=== PATIENT | female | born 1970 | race Caucasian/White ===

== ENCOUNTER 2017-04-21 19:20 | Emergency (ER) | payer BC, OTHER ==
[2017-04-21 19:28] VITALS: BP 179/82; PULSE 81; RESP 20; TEMP 99.2; O2SAT 96
[2017-04-21] MEDS ORDERED: WELL200T PO (19:32)
[2017-04-21] MEDS ORDERED: TIRO125C PO (19:32)
[2017-04-21] MEDS ORDERED: SODIUM CHLOR 0.9% 1000 ML INJ 1,000 ML IV SCH (19:58)
[2017-04-21 19:59] VITALS: O2SAT 98
[2017-04-21] MEDS ORDERED: SODIUM CHLORIDE 0.9% FLUSH 10 ML FLUSH IV FLUSH PRN (20:00)
[2017-04-21 20:12] LABS: AUTOMATED NEUTROPHIL # 14.6 TH/MM3 (1.8-7.7); BASOPHIL # 0.1 TH/MM3 (0-0.2); BASOPHIL % 0.6 % (0.0-2.0); EOSINOPHIL # 0.1 TH/MM3 (0-0.4); EOSINOPHIL % 0.7 % (0.0-4.0); HEMATOCRIT 41.7 % (35.0-46.0); LYMPH % 6.8 % (9.0-44.0); LYMPHOCYTE # 1.1 TH/MM3 (1.0-4.8); MEAN CELL VOLUME 87.4 FL (80.0-100.0); MEAN CORPUSCULAR HEMOGLOBIN 29.9 PG (27.0-34.0); MEAN CORPUSCULAR HGB CONC 34.2 % (32.0-36.0); MONO % 6.2 % (0.0-8.0); NEUT % 85.7 % (16.0-70.0); PLATELET COUNT 187 TH/MM3 (150-450); RED BLOOD COUNT 4.77 MIL/MM3 (4.00-5.30); RED CELL DISTRIBUTION WIDTH 16.2 % (11.6-17.2); WHITE BLOOD COUNT 16.9 TH/MM3 (4.0-11.0)
[2017-04-21 20:13] LABS: BLOOD, URINE TRACE (NEG); GLUCOSE,URINE NEG (NEG); KETONE, URINE NEG (NEG); NITRITE,URINE NEG (NEG); PH, URINE 5.5 (5.0-8.5)
[2017-04-21 20:14] LABS: HEMO FLAGS DIFF FINAL
[2017-04-21 20:19] LABS: CHLORIDE 103 MEQ/L (98-107); POTASSIUM 3.6 MEQ/L (3.5-5.1); SODIUM (NA) 136 MEQ/L (136-145)
[2017-04-21 20:23] LABS: ANION GAP 8 MEQ/L (5-15); BICARBONATE 24.9 MEQ/L (21.0-32.0)
[2017-04-21 20:24] LABS: URINE COLOR YELLOW (YELLW/STRAW)
[2017-04-21 20:24] LABS: BLOOD UREA NITROGEN 11 MG/DL (7-18); PROTHROMBIN TIME - PATIENT 11.2 SEC (9.8-11.6)
[2017-04-21 20:25] LABS: MUCUS URINE MOD /lpf (OCC)
[2017-04-21 20:26] LABS: ALT (GPT) 21 U/L (10-53); AST (GOT) 12 U/L (15-37); GLOMERULAR FILTRATION RATE 75 ML/MIN (>89)
[2017-04-21 20:27] LABS: BACTERIA, URINE OCC /hpf
[2017-04-21 20:28] LABS: TOTAL BILIRUBIN ADULT 0.3 MG/DL (0.2-1.0)
[2017-04-21 20:29] LABS: ALKALINE PHOSPHATASE 61 U/L (45-117)
[2017-04-21 20:31] LABS: COMMENT (UR) CULT NOT INDICATED; CULTURE IF INDICATED CULT NOT INDICATED; WBC, URINE 0-2 /hpf (0-5)
[2017-04-21 20:32] LABS: BETA HCG QUANT LESS THAN 1 MIU/ML (0-5)
--- NOTE | 2017-04-21 20:32 | RADRPT ---
EXAM DATE/TIME: 04/21/2017 20:13 [place] COMPARISON: No previous studies available for comparison. INDICATIONS : Right upper quadrant pain. MEDICAL HISTORY : Thyroid disease. SURGICAL HISTORY : Uterine oblation. ENCOUNTER: Initial ACUITY: 1 day PAIN SCORE: 0/10 LOCATION: Right upper quadrant MEASUREMENTS: LIVER: 19.2 cm length COMMON DUCT: 6 mm RIGHT KIDNEY: 13.5 x 5.3 x 6.0 cm FINDINGS: LIVER: Liver is enlarged and demonstrates a heterogeneous echotexture. COMMON DUCT: No intraluminal mass or stone visualized. GALLBLADDER: The gallbladder is collapsed and contains multiple stones. There is no evidence of surrounding fluid. PANCREAS: The visualized portions are within normal limits. RIGHT KIDNEY: No evidence of hydronephrosis, stone, or mass. CONCLUSION: 1. Collapsed gallbladder with multiple stones but no evidence of surrounding fluid. 2. Hepatomegaly with coarse echotexture. 3. No other significant abnormality. Jony Carty MD on April 21, 2017 at 20:28 Board Certified Radiologist. This report was verified electronically.
[2017-04-21] MEDS ORDERED: ZOFR4TAB3 SL (20:47)
--- NOTE | 2017-04-21 20:47 | PD ---
HPI Chief Complaint: Abdominal Pain Time Seen by Provider: 19:42 Travel History International Travel<30 days: No Contact w/Intl Traveler<30days: No Traveled to known affect area: No History of Present Illness HPI 46-year-old female with history of gallstones scheduled for cholecystectomy in [address] Velazco, history of anemia with heavy vaginal bleeding and is scheduled for hysterectomy at the same time as her cholecystectomy in 2 weeks, here for evaluation of nausea, vomiting, and right upper quadrant abdominal pain. Symptoms started suddenly shortly after eating this evening. Right upper quadrant pain was pressure-like and sharp. She vomited several times, initially she saw coffee grounds, however this turned into food. No hematemesis. No melena or hematochezia. She was given Zofran by EMS, and upon arrival the patient reports feeling significantly improved. She no longer has abdominal pain. PFSH Past Medical History Thyroid Disease: Yes ?: Not Past Surgical History Other Surgery: Yes (UTERINE OBLATION) Social History Alcohol Use: No Tobacco Use: No Substance Use: No Allergies-Medications (Allergen,Severity, Reaction): Coded Allergies: penicillin G (Unverified Adverse Reaction, Unknown, U, 04/21/17) Reported Meds & Prescriptions Reported Meds & Active Scripts Active Reported Tirosint (Levothyroxine Sodium) 125 Mcg Cap 125 Mcg PO DAILY Wellbutrin SR 12 HR (Bupropion HCl) 200 Mg Tab 200 Mg PO DAILY Review of Systems Except as stated in HPI: all other systems reviewed are Neg Physical Exam Narrative GENERAL: Well-developed, well-nourished, comfortable, no apparent distress. SKIN: Focused skin assessment warm/dry. HEAD: Atraumatic. Normocephalic. EYES: Pupils equal and round. No scleral icterus. No injection or drainage. ENT: Mucous membranes pink and moist. NECK: Trachea midline. No JVD. CARDIOVASCULAR: Regular rate and rhythm. No murmur appreciated. RESPIRATORY: No accessory muscle use. Clear to auscultation. Breath sounds equal bilaterally. GASTROINTESTINAL: Abdomen soft, non-tender, nondistended. Heme negative brown stool. MUSCULOSKELETAL: No obvious deformities. No clubbing. No cyanosis. No edema. NEUROLOGICAL: Awake and alert. No obvious cranial nerve deficits. Motor grossly within normal limits. Normal speech. PSYCHIATRIC: Appropriate mood and affect; insight and judgment normal. Data Data Last Documented VS Vital Signs Date Time Temp Pulse Resp B/P (MAP) Pulse Ox O2 Delivery O2 Flow Rate FiO2 04/21/17 19:59 98 04/21/17 19:28 99.2 81 20 179/82 (114) Orders Orders Beta Hcg (Quant/Titer) (04/21/17 19:58) Complete Blood Count With Diff (04/21/17 19:58) Comprehensive Metabolic Panel (04/21/17 19:58) Lipase (04/21/17 19:58) Prothrombin Time / Inr (Pt) (04/21/17 19:58) Act Partial Throm Time (Ptt) (04/21/17 19:58) Urinalysis - C+S If Indicated (04/21/17 19:58) Us Abdomen Gallbladder (04/21/17 ) Iv Access Insert/Monitor (04/21/17 19:58) Ecg Monitoring (04/21/17 19:58) Oximetry (04/21/17 19:58) Sodium Chlor 0.9% 1000 Ml Inj (Ns 1000 M (04/21/17 19:58) Sodium Chloride 0.9% Flush (Ns Flush) (04/21/17 20:00) Labs Laboratory Tests Test 04/21/17 19:55 04/21/17 20:05 Urine Collection Type Urine Color YELLOW Urine Turbidity SLIGHT Urine pH 5.5 Urine Specific [place] 1.022 Urine Protein NEG mg/dL Urine Glucose (UA) NEG mg/dL Urine Ketones NEG mg/dL Urine Occult Blood TRACE Urine Nitrite NEG Urine Bilirubin NEG Urine Leukocyte Esterase NEG Urine RBC 4-9 /hpf Urine WBC 0-2 /hpf Urine Squamous Epithelial Cells 6-8 /hpf Urine Amorphous Sediment FEW Urine Bacteria OCC /hpf Urine Mucus MOD /lpf Microscopic Urinalysis Comment CULT NOT INDICATED White Blood Count 16.9 TH/MM3 Red Blood Count 4.77 MIL/MM3 Hemoglobin 14.3 GM/DL Hematocrit 41.7 % Mean Corpuscular Volume 87.4 FL Mean Corpuscular Hemoglobin 29.9 PG Mean Corpuscular Hemoglobin Concent 34.2 % Red Cell Distribution Width 16.2 % Platelet Count 187 TH/MM3 Mean Platelet Volume 9.2 FL Neutrophils (%) (Auto) 85.7 % Lymphocytes (%) (Auto) 6.8 % Monocytes (%) (Auto) 6.2 % Eosinophils (%) (Auto) 0.7 % Basophils (%) (Auto) 0.6 % Neutrophils # (Auto) 14.6 TH/MM3 Lymphocytes # (Auto) 1.1 TH/MM3 Monocytes # (Auto) 1.0 TH/MM3 Eosinophils # (Auto) 0.1 TH/MM3 Basophils # (Auto) 0.1 TH/MM3 CBC Comment DIFF FINAL Differential Comment Prothrombin Time 11.2 SEC Prothromb Time International Ratio 1.0 RATIO Activated Partial Thromboplast Time 24.0 SEC Blood Urea Nitrogen 11 MG/DL Creatinine 0.81 MG/DL Random Glucose 139 MG/DL Total Protein 7.1 GM/DL Albumin 3.5 GM/DL Calcium Level 8.2 MG/DL Alkaline Phosphatase 61 U/L Aspartate Amino Transf (AST/SGOT) 12 U/L Alanine Aminotransferase (ALT/SGPT) 21 U/L Total Bilirubin 0.3 MG/DL Sodium Level 136 MEQ/L Potassium Level 3.6 MEQ/L Chloride Level 103 MEQ/L Carbon Dioxide Level 24.9 MEQ/L Anion Gap 8 MEQ/L Estimat Glomerular Filtration Rate 75 ML/MIN Lipase 118 U/L Human Chorionic Gonadotropin, Quant LESS THAN 1 MIU/ML MDM Medical Decision Making Medical Screen Exam Complete: Yes Emergency Medical Condition: Yes Differential Diagnosis Biliary colic, gastritis, peptic ulcer disease, pancreatitis, cholecystitis, choledocholithiasis, cholangitis Narrative Course Initial vital signs show heart rate 81, blood pressure 179/82, pulse ox 96% on room air, oral temp of 99.2F. CBC is remarkable for WBC 16.9 with 85.7% neutrophils. This is likely secondary to stress demargination from vomiting. CMP is essentially unremarkable. Lipase is 118. Beta hCG is negative. UA is not suggestive of UTI. Right upper quadrant ultrasound: CONCLUSION: 1. Collapsed gallbladder with multiple stones but no evidence of surrounding fluid. 2. Hepatomegaly with coarse echotexture. 3. No other significant abnormality. Patient has remained pain-free and nausea free here in the emergency department. Her stool is heme negative and brown. Abdominal exam shows no tenderness. She was made aware of all findings. She likely had an episode of biliary colic. She will be discharged home with strict return instructions. Follow-up with her general surgeon Dr. Velazco in 2 weeks for cholecystectomy. She is amenable to this plan. Diagnosis Primary Impression: Biliary colic Referrals: Frantz Velazco MD Additional Instructions: Follow-up with Dr Velazco in 2 weeks for cholecystectomy. Return to the emergency department for worsening symptoms or any other concerns. Scripts Ondansetron Odt (Zofran Odt) 4 Mg Tab 4 MG SL Q8HR Y for Nausea/Vomiting, #20 TAB 0 Refills Prov: Lai Moise MD 04/21/17 Disposition: 01 DISCHARGE HOME Condition: Stable Lai Moise MD Apr 21, 2017 20:47
[2017-04-21 20:56] VITALS: BP 160/80
[2017-05-06] MEDS ORDERED: CHOL5000 PO (13:12)
[2017-05-06] MEDS ORDERED: CYAN1000P IM (13:12)
== END 2017-04-21 20:58 | disposition home or self-care (01) ==
LOC: PHED 19:20
DX: K80.20 Calculus of gallbladder without cholecystitis without obstruction (principal); R16.0 Hepatomegaly, not elsewhere classified
CPT/HCPCS: 76705; 80053; 81001; 83690; 84702; 85025; 85610; 85730; 96360; 99285; J7030

== ENCOUNTER 2017-05-07 09:48 | Observation (INO) | payer BC ==
[~2017-05-07] VITALS: Ht 170.2 cm; Wt 97.5 kg
[~2017-05-07 09:48] MED LIST: CHOL5000 PO; CYAN1000P IM; TIRO125C PO; WELL200T PO; ZOFR4TAB3 SL
[2017-05-07] MEDS ORDERED: BUPIVACAINE/EPINEPHRINE 0.25% 50 ML VIAL ONE (09:59)
[2017-05-07] MEDS ORDERED: MICROFIBRILLAR COLLAGEN HEMOSTAT 1 GM PKT ONE (10:04)
[2017-05-07] MEDS ORDERED: METRONIDAZOLE 500 MG/100 ML ISONTONIC SOLN IV SCH (10:45)
[2017-05-07] MEDS ORDERED: VANCOMYCIN HCL 1000 MG ON-CALL/NS 250 ML IV SCH ×2 (10:45)
[2017-05-07] MEDS ORDERED: CHLORHEXIDINE GLUCONATE 2 % 1 PACK (2 CLOTHS) TOPICAL PRN (10:45)
[2017-05-07] MEDS ORDERED: METOPROLOL TARTRATE 25 MG TAB PO PRN (10:45)
[2017-05-07] MEDS ORDERED: ceFAZolin 2 GM PREMIX 50 ML IV SCH (10:45)
[2017-05-07] MEDS ORDERED: SODIUM CHLORID 0.9% 500 ML IV PRN (10:45)
[2017-05-07] MEDS ORDERED: LACTATED RINGER'S 1000 ML IV PRN (10:45)
[2017-05-07] MEDS ORDERED: INSULIN HUMAN REGULAR 1,000 UNITS/10 ML VIAL SQ PRN (10:45)
[2017-05-07] MEDS ORDERED: POVIDONE IODINE 5% (ANTISEPSIS KIT) 4 APPLICATIONS EACH NARE PRN (10:45)
[2017-05-07 10:47] LABS: AUTOMATED NEUTROPHIL # 6.4 TH/MM3 (1.8-7.7); BASOPHIL % 0.5 % (0.0-2.0); EOSINOPHIL # 0.1 TH/MM3 (0-0.4); EOSINOPHIL % 1.3 % (0.0-4.0); HEMATOCRIT 39.7 % (35.0-46.0); HEMO FLAGS DIFF FINAL; LYMPH % 19.9 % (9.0-44.0); LYMPHOCYTE # 1.8 TH/MM3 (1.0-4.8); MEAN CELL VOLUME 88.5 FL (80.0-100.0); MEAN CORPUSCULAR HEMOGLOBIN 30.5 PG (27.0-34.0); MEAN CORPUSCULAR HGB CONC 34.5 % (32.0-36.0); MONO % 6.5 % (0.0-8.0); NEUT % 71.8 % (16.0-70.0); PLATELET COUNT 210 TH/MM3 (150-450); RED BLOOD COUNT 4.49 MIL/MM3 (4.00-5.30); WHITE BLOOD COUNT 8.9 TH/MM3 (4.0-11.0)
[2017-05-07] MEDS ORDERED: FAMOTIDINE 20 MG/2 ML VIAL ONE (11:51)
[2017-05-07] MEDS ORDERED: GLYCOPYRROLATE 1 MG/5 ML SYRINGE IV PUSH ONE (12:00)
[2017-05-07] MEDS ORDERED: MIDAZOLAM HCL 2 MG/2 ML VIAL IV ONE (12:00)
[2017-05-07] MEDS ORDERED: ONDANSETRON HCL 4 MG/2 ML VIAL IV PUSH ONE (12:00)
[2017-05-07] MEDS ORDERED: NEOSTIGMINE 3 MG/3 ML SYR IV ONE (12:00)
[2017-05-07] MEDS ORDERED: ePHEDrine/NS 25 MG/5 ML SYR IV ONE (12:00)
[2017-05-07] MEDS ORDERED: PROPOFOL 200 MG/20 ML AMP IV ONE (12:00)
[2017-05-07] MEDS ORDERED: LIDOCAINE HCL 1% PF 5 ML AMPULE OTHER ONE (12:00)
[2017-05-07] MEDS ORDERED: LACTATED RINGER'S 1000 ML INJ 1,000 ML IV ONE (12:00)
[2017-05-07] MEDS ORDERED: ROCURONIUM INJ 50 MG/5 ML SYRINGE IV PUSH ONE (12:00)
--- NOTE | 2017-05-07 12:05 | HHI.HP ---
HPI Date Seen: May 07, 2017 Time Seen: 12:00 Travel History International Travel<30 Days: Yes Contact w/Intl Traveler<30Days: Yes Name of Country Traveled to: [place] Known Affected Area: Yes History of Present Illness HPI patient has heavy bleeding and she has tried both medical and ablation not worked for LAVH bilateral salpingectomy History Past Medical History Narrative Medical hypothyroid Obstetric History Obstetric History CS x2 one was with twins Past Surgical History Narrative Surgical ablation and CSx2 Family History Family History: Negative Social History Alcohol Use: No Tobacco Use: No Substance Abuse: No Allergies-Medications (Allergen,Severity, Reaction): Coded Allergies: penicillin G (Unverified Adverse Reaction, Unknown, U, 05/07/17) Home Meds Active Scripts Ondansetron Odt (Zofran Odt) 4 Mg Tab, 4 MG SL Q8HR Y for Nausea/Vomiting, #20 TAB 0 Refills Prov:Lai Moise MD 04/21/17 Reported Medications Cyanocobalamin Inj (Cyanocobalamin Inj) 1,000 Mcg/Ml Inj, 1000 MCG IM Q 7 DAYS, #1 VIAL 0 Refills 05/06/17 Cholecalciferol (Vitamin D3) 5,000 Unit Cap, 5000 UNITS PO DAILY for Nutritional Supplement, #30 CAP 0 Refills 05/06/17 Levothyroxine (Tirosint) 125 Mcg Cap, 125 MCG PO DAILY for Thyroid, #30 CAP 0 Refills 04/21/17 Bupropion HCl ER 12 HR (Wellbutrin SR 12 HR) 200 Mg Tab, 200 MG PO DAILY for Control Depression, TAB 0 Refills 04/21/17 Review of Systems Except as stated in HPI: all other systems reviewed are Neg Physical Exam Vital Signs Date Time Temp Pulse Resp B/P (MAP) Pulse Ox O2 Delivery O2 Flow Rate FiO2 05/07/17 11:02 99.9 79 20 178/81 (113) 98 Narrative GENERAL: Well-nourished, well-developed patient. SKIN: Warm and dry. HEAD: Normocephalic and atraumatic. EYES: No scleral icterus. No injection or drainage. ENT: No nasal drainage noted. Mucous membranes pink. Airway patent. NECK: Supple, trachea midline. No JVD. CARDIOVASCULAR: Regular rate and rhythm without murmurs, gallops, or rubs. RESPIRATORY: Breath sounds equal bilaterally. No accessory muscle use. BREASTS: Bilateral exam showed no masses , no retractions, no nipple discharge. ABDOMEN/GI: Abdomen soft, non-tender, bowel sounds present, no rebound, no guarding GENITOURINARY: External Genitalia: intact and normal in appearance EXTREMITIES: No cyanosis or edema. BACK: Nontender without obvious deformity. No CVA tenderness. NEUROLOGICAL: Awake and alert. Motor and sensory grossly within normal limits. Five out of 5 muscle strength in all muscle groups. Normal speech. Caprini VTE Risk Assessment Caprini VTE Risk Assessment: Mod/High Risk (score >= 2) Caprini Risk Assessment Model Point Value = 1 Point Value = 2 Point Value = 3 Point Value = 5 Age 41-60 Minor surgery BMI > 25 kg/m2 Swollen legs Varicose veins or History of unexplained or recurrent spontaneous Oral contraceptives or hormone replacement Sepsis (< 1 month) Serious lung disease, including pneumonia (< 1 month) Abnormal pulmonary function Acute myocardial infarction Congestive heart failure (< 1 month) History of inflammatory bowel disease Medical patient at bed rest Age 61-74 Arthroscopic surgery Major open surgery (> 45 min) Laparoscopic surgery (> 45 min) Malignancy Confined to bed (> 72 hours) Immobilizing plaster cast Central venous access Age >= 75 History of VTE Family history of VTE Factor V Leiden Prothrombin [id number] Lupus anticoagulant Anticardiolipin antibodies Elevated serum homocysteine Heparin-induced thrombocytopenia Other congenital or acquired thrombophilia Stroke (< 1 month) Elective arthroplasty Hip, pelvis, or leg fracture Acute spinal cord injury (< 1 month) Prophylaxis Regimen Total Risk Factor Score Risk Level Prophylaxis Regimen 0-1 Low Early ambulation 2 Moderate Order ONE of the following: *Sequential Compression Device (SCD) *Heparin 5000 units SQ BID 3-4 Higher Order ONE of the following medications: *Heparin 5000 units SQ TID *Enoxaparin/Lovenox 40 mg SQ daily (WT < 150 kg, CrCl > 30 mL/min) *Enoxaparin/Lovenox 30 mg SQ daily (WT < 150 kg, CrCl > 10-29 mL/min) *Enoxaparin/Lovenox 30 mg SQ BID (WT < 150 kg, CrCl > 30 mL/min) AND/OR *Sequential Compression Device (SCD) 5 or more Highest Order ONE of the following medications: *Heparin 5000 units SQ TID (Preferred with Epidurals) *Enoxaparin/Lovenox 40 mg SQ daily (WT < 150 kg, CrCl > 30 mL/min) *Enoxaparin/Lovenox 30 mg SQ daily (WT < 150 kg, CrCl > 10-29 mL/min) *Enoxaparin/Lovenox 30 mg SQ BID (WT < 150 kg, CrCl > 30 mL/min) AND *Sequential Compression Device (SCD) Data Data Vital Signs Reviewed: Yes Orders Orders Bupivacaine-Epineph 0.25% Inj (Sensorcai (05/07/17 09:59) Microfib Col Hemostat Pow Pack (Avitene (05/07/17 10:04) Complete Blood Count With Diff (05/07/17 10:05) Type And Screen (05/07/17 10:05) Bhcg Screen Qualitative (05/07/17 10:05) Lactated Ringer's 1000 Ml Inj (Lr 1000 M (05/07/17 10:45) Sodium Chlorid 0.9% 500 Ml Inj (Ns 500 M (05/07/17 10:45) Metoprolol Tartrate (Lopressor) (05/07/17 10:45) Povidone Iod 5% Antisepsis Kit (Betadine (05/07/17 10:45) Chlorhexidine 2% Cloth (Chlorhexidine 2% (05/07/17 10:45) Insulin Human Regular Inj (Novolin R Inj (05/07/17 10:45) Cefazolin 2 Gm Premix (Ancef 2 Gm Premix (05/07/17 10:45) Vancomycin Inj (Vancomycin Inj) (05/07/17 10:45) Metronidazole 500 Mg Inj (Flagyl 500 Mg (05/07/17 10:45) Famotidine Inj (Pepcid Inj) (05/07/17 11:51) Labs Laboratory Tests Test 05/07/17 10:30 White Blood Count 8.9 Red Blood Count 4.49 Hemoglobin 13.7 Hematocrit 39.7 Mean Corpuscular Volume 88.5 Mean Corpuscular Hemoglobin 30.5 Mean Corpuscular Hemoglobin Concent 34.5 Red Cell Distribution Width 16.0 Platelet Count 210 Mean Platelet Volume 8.5 Neutrophils (%) (Auto) 71.8 Lymphocytes (%) (Auto) 19.9 Monocytes (%) (Auto) 6.5 Eosinophils (%) (Auto) 1.3 Basophils (%) (Auto) 0.5 Neutrophils # (Auto) 6.4 Lymphocytes # (Auto) 1.8 Monocytes # (Auto) 0.6 Eosinophils # (Auto) 0.1 Basophils # (Auto) 0.0 CBC Comment DIFF FINAL Differential Comment Assessment/Plan Problem List: (1) Excessive menses ICD Codes: N92.0 - Excessive and frequent menstruation with regular cycle Plan: For LAVH bilateral salpingectomy Robin Gtz MD May 07, 2017 12:05
--- NOTE | 2017-05-07 14:52 | PD.OP ---
Operative Report Date of Surgery: May 07, 2017 Preoperative Diagnosis: (1) Excessive menses Postoperative Diagnosis: (1) Excessive menses Procedure: LASH bilateral salpingectomy Anesthesia: general Surgeon: Robin Gtz Life Enrichment Assistant(s): Robin Wilson MD May 07, 2017 14:52
[2017-05-07] MEDS ORDERED: diphenhydrAMINE HCL 25 MG CAP PO PRN (15:00)
[2017-05-07] MEDS ORDERED: SODIUM CHLORIDE 0.9% FLUSH 10 ML FLUSH IV FLUSH PRN (15:00)
[2017-05-07] MEDS ORDERED: oxyCODONE/ACETAMINOPHEN 5 MG/325 MG TAB PO PRN ×2 (15:00)
[2017-05-07] MEDS ORDERED: IBUPROFEN 600 MG TAB PO PRN (15:00)
--- NOTE | 2017-05-07 15:05 | PD.OP ---
Operative Report Date of Surgery: May 07, 2017 Preoperative Diagnosis: symptomatic cholelithiasis Postoperative Diagnosis: same Procedure: lap hanh Anesthesia: general Surgeon: Frantz Velazco Marketing Professional(s): Maddie Mott MS3 Operation and Findings: GB with stones to pathology. EBL minimal. Frantz Velazco MD May 07, 2017 15:05
[2017-05-07] MEDS ORDERED: ACETAMINOPHEN 1000 MG/100 ML 100 ML IV ONE (15:09)
[2017-05-07] MEDS ORDERED: DO NOT ADM ANY ANTICOAGULANT DRUGS PRN (15:11)
[2017-05-07] MEDS ORDERED: *ONDANSETRON 4 MG VIAL PERIprocedural Use ONLY ONE (15:19)
[2017-05-07] MEDS ORDERED: *PROMETHAZINE 25 MG/ML VIAL PERIprocedural use ONLY ONE (15:28)
[2017-05-07] MEDS ORDERED: *morphine SULFATE 8 MG/ML PERIprocedure ONLY ONE ×2 (16:12→16:38)
[2017-05-07 17:00] VITALS: BP 159/97; PULSE 95; RESP 22; TEMP 98; O2SAT 100
[2017-05-07] MEDS: HYDROmorphone HCL PF 1 MG/ML VIAL IVP PRN ×2 (17:40→21:28)
--- NOTE | 2017-05-07 18:04 | MP ---
cc: THOMAS MARSHALL MD,THIEN Unger M.D. DATE OF SURGERY 05/07/17 PREOPERATIVE DIAGNOSIS Symptomatic cholelithiasis. POSTOPERATIVE DIAGNOSIS Symptomatic cholelithiasis. PROCEDURE Laparoscopic cholecystectomy. SURGEON Dr. Cathy Marshall [employer] NET SOFTWARE DEVELOPER Marta Mott, MS III ANESTHESIA General INDICATIONS A pleasant 46-year-old woman, patient of Dr. Thien Gtz, sent to me in consultation for gallstones, symptomatic. The patient has had dysfunctional uterine bleeding and is undergoing laparoscopic assisted hysterectomy. Request has been made for concomitant laparoscopic cholecystectomy. INTRAOPERATIVE FINDINGS Gallbladder and stones removed and sent to pathology. ESTIMATED BLOOD LOSS Minimal. PROCEDURE IN DETAIL The patient had undergone laparoscopic assisted hysterectomy by Dr. Thien Gtz. Please refer to his dictation for details of his procedure. Upon my entering the operating room, a low transverse incision had been closed, two right and left lower quadrant trocars and removed and a 5 mm trocar was then positioned in the inferior aspect of the umbilicus. A time-out procedure was performed. Following completion of time-out procedure to everyone's satisfaction within the room, the abdomen was re-insufflated and examination demonstrated in the upper abdomen adjacent to liver some old serosanguineous irrigation. With the patient in reverse Trendelenburg position, two upper abdominal 5 mm trocars were placed in the peritoneal cavity under direct laparoscopic view after incision of the skin with a scalpel and instillation of local anesthetic in the skin. The fluid in the right upper quadrant was suctioned out. The gallbladder was identified. There was a fatty infiltrated liver. The gallbladder was retracted superiorly and anteriorly and there were no inflammatory adhesions identified. The gallbladder was then removed from the gallbladder fossa in a dome down technique using the harmonic scalpel. Two cystic arterial branches were divided with the harmonic scalpel and the cystic duct was isolated from surrounding tissues. It was ligated proximally and distally with 0-PDS Endoloops and divided between the Endoloops. An Endo retriever bag was placed through the infraumbilical 5 mm port site into the peritoneal cavity. The gallbladder was placed into the Endo retriever bag and the incision at the level of the skin and the fascia was increased in size to allow for removal of the gallbladder with stones which was passed off the field for pathologic evaluation. The 10 mm blunt tip balloon Fox trocar was then placed into the abdominal cavity through the infraumbilical incision in insufflation recreated. Right upper quadrant was examined. A small amount of more of that same serosanguineous fluid adjacent to the liver was suctioned out. The gallbladder fossa was completely hemostatic. The cystic duct ligature remained intact. Cystic arterial stumps were hemostatic. Brief survey of the remainder of the intra-abdominal contents demonstrated in the right lower quadrant some more serosanguineous fluid with a couple of areas of clotted blood which was suctioned out using the suction irrigation device. No active hemorrhage was identified. Trocars were removed under direct visualization. There was evidence of bleeding from trocar sites. The abdomen was actively desufflated through the infraumbilical port which was then removed. The infraumbilical fascial incision was closed with a single interrupted 0 Vicryl [id number] suture. Port site skin incisions were approximated with 4-0 Monocryl subcuticular sutures and dressings were applied with Mastisol 1/2" Steri-Strips. A dry sterile dressing was placed over Dr. Gtz' low transverse incision. The patient tolerated the procedure without apparent complication. Sponge, needle and instrument counts were correct at the end of the case. MD ALEK Morocho/ /2:59 PM /5:45 PM
[2017-05-07] MEDS: ONDANSETRON HCL 4 MG/2 ML VIAL IVP PRN (19:46)
[2017-05-07] MEDS: SODIUM CHLORIDE 0.9% FLUSH 10 ML FLUSH IV FLUSH SCH (19:51)
[2017-05-07 20:20] VITALS: BP 137/68; PULSE 96; RESP 18; TEMP 97.1; O2SAT 96
[2017-05-08 00:10] VITALS: BP 114/55; PULSE 90; RESP 17; TEMP 96.1; O2SAT 97
[2017-05-08] MEDS: ONDANSETRON HCL 4 MG/2 ML VIAL IVP PRN (02:07)
[2017-05-08] MEDS: KETOROLAC TROMETHAMINE 30 MG/ML (IVP) VIAL IVP PRN ×2 (02:08→12:33)
[2017-05-08] MEDS ORDERED: LACTATED RINGER'S 1000 ML INJ 1,000 ML IV SCH (02:15)
[2017-05-08 04:15] VITALS: BP 117/62; PULSE 89; RESP 17; TEMP 96.9; O2SAT 99
[2017-05-08] MEDS: HYDROmorphone HCL PF 1 MG/ML VIAL IVP PRN ×2 (06:00→12:33)
[2017-05-08 07:24] LABS: AUTOMATED NEUTROPHIL # 7.6 TH/MM3 (1.8-7.7); BASOPHIL % 0.3 % (0.0-2.0); EOSINOPHIL # 0.1 TH/MM3 (0-0.4); HEMO FLAGS DIFF FINAL; LYMPH % 16.5 % (9.0-44.0); LYMPHOCYTE # 1.7 TH/MM3 (1.0-4.8); MEAN CELL VOLUME 90.2 FL (80.0-100.0); MEAN CORPUSCULAR HEMOGLOBIN 31.6 PG (27.0-34.0); MONO % 7.3 % (0.0-8.0); NEUT % 74.9 % (16.0-70.0); PLATELET COUNT 172 TH/MM3 (150-450); RED BLOOD COUNT 3.33 MIL/MM3 (4.00-5.30); RED CELL DISTRIBUTION WIDTH 15.6 % (11.6-17.2); WHITE BLOOD COUNT 10.1 TH/MM3 (4.0-11.0)
[2017-05-08 08:00] VITALS: BP 112/62; PULSE 86; RESP 16; TEMP 98; O2SAT 97
--- NOTE | 2017-05-08 08:44 | MP ---
cc: THIEN GTZ DATE OF SURGERY 05/07/17 DATE OF : 1970 A 46-year-old patient who has an enlarged uterus who has heavy bleeding had an ablation done which did not improve her excessive menses. Patient is scheduled for an LASH and a bilateral salpingectomy. PROCEDURE Laparoscopic supracervical hysterectomy with a bilateral salpingectomy. PREOPERATIVE DIAGNOSIS Excessive menses. POSTOPERATIVE DIAGNOSIS Excessive menses SURGEON Dr. Tadeo Gtz ESTIMATED BLOOD LOSS 300 mL COMPLICATIONS None FINDINGS Enlarged uterus, normal ovaries bilaterally. Minimal scar tissue from previous section. PROCEDURE IN DETAIL After informed consent, the patient was taken to the operating room where she was placed in the [facility]. Abdomen, perineum and vagina prepped and draped in normal sterile fashion. Bustos cath was placed to gravity and speculum was placed in the vagina. A uterine manipulator was placed in the cervix without difficulty and gloves were changed. A 5 mm infraumbilical incision was then made, carried sharply to the subcutaneous tissue and entered the abdomen under direct visualization. Left lower quadrant and right lower quadrant 5 mm trocars were placed without difficulty. The uterus was enlarged and boggy. Using the Harmonic scalpel came underneath the mesosalpinx and removing the fallopian tubes from the ovaries. We completely removed the fallopian tubes and they were excised and pulled through the 5 mm trocar sites. At this point, the Harmonic scalpel was used to cut and cauterize the utero-ovarian ligament. We continued across the round ligament down to the level of the broad ligament, going down the broad ligament, cutting and cauterizing the uterine arteries. As we reached the level of the bladder flap, we had to dissect the bladder off the lower uterine segment with sharp dissection secondary to scar tissue from previous section x2. We dissected the scar tissue down and then a bladder flap was created. At this point, uterine arteries were easily visualized. They were cauterized. They had some bleeding, especially from the right side. Using bipolar cautery, we controlled the bleeding on the right and any areas of bleeding were taken care with the bipolar cautery. We then came across the cervical stump with a Harmonic scalpel and the uterus was amputated. Internal os was cauterized with a bipolar cautery. Good hemostasis. The uterine manipulator had been removed from the cervix prior to this removal. At this point, an incision was made 5 cm in length across the suprapubic region through her old Pfannenstiel skin incision. We opened the fascia and the uterus was brought through the incision. The uterus had to be bivalved to remove and it was easily removed. Once the uterus was removed, the fascia was closed with 0 Vicryl suture. Skin was closed with subcuticular stitch. Each layer was noted to be hemostatic prior to closure. Two 5 mm ports were removed. Dr. Velazco then came into the surgery and was to perform his cholecystectomy. The patient was still asleep at the end of the procedure but all lap and instruments were counted as correct and 300 mL blood loss was estimated. MD VLADIMIR Grayson/ /3:04 PM /8:35 AM
--- NOTE | 2017-05-08 09:08 | HHI.PR ---
Subjective Remarks Doing well, pain is well controlled, drinking clears Objective Vital Signs Vital Signs Date Time Temp Pulse Resp B/P (MAP) Pulse Ox O2 Delivery O2 Flow Rate FiO2 05/08/17 04:15 96.9 89 17 117/62 (80) 99 05/08/17 00:10 96.1 90 17 114/55 (74) 97 05/07/17 20:20 97.1 96 18 137/68 (91) 96 05/07/17 17:00 98.0 95 22 159/97 (117) 100 05/07/17 16:45 98.4 96 15 131/58 (82) 100 Nasal Cannula 3 05/07/17 16:30 81 15 127/62 (83) 100 Nasal Cannula 3 05/07/17 16:00 76 16 125/59 (81) 100 Nasal Cannula 3 05/07/17 15:45 71 16 121/60 (80) 100 Nasal Cannula 3 05/07/17 15:30 71 17 121/60 (80) 98 Nasal Cannula 3 05/07/17 15:15 70 15 119/57 (77) 100 Nasal Cannula 3 05/07/17 15:04 98.6 69 15 145/63 (90) 98 Nasal Cannula 3 05/07/17 11:02 99.9 79 20 178/81 (113) 98 I/O 05/07/17 05/07/17 05/07/17 05/08/17 05/08/17 05/08/17 07:00 15:00 23:00 07:00 15:00 23:00 Intake Total 2300 ml 280 ml 480 ml Output Total 800 ml 850 ml 300 ml Balance 1500 ml -570 ml 180 ml Intake Oral 480 ml IV Total 300 ml 280 ml Other 2000 ml Output Urine Total 500 ml 850 ml 300 ml Estimated Blood Loss 300 ml # Voids 1 Result Diagram: 05/08/17 0634 Objective Remarks Chest is clear, regular rate and rhythm. Abdomen is soft and non-distended. Incision is clean and dry. Ext no CCE. A/P Assessment and Plan Post Op Day 1 Doing well Home today and return to office in two weeks. Robin Gtz MD May 08, 2017 09:08
[2017-05-08] MEDS ORDERED: OXYC1TAB63 PO (09:11)
--- NOTE | 2017-05-08 09:12 | HHI.DCPOC ---
Discharge Care Plan Diagnosis: (1) Excessive menses Report Symptoms to Your Doctor -Temperature above 100.5 degrees -Redness, of incision or excessive or foul smelling drainage -Unusual pain or calf pain -Increased vaginal bleeding -Painful or difficulty urinating -Feelings of extreme sadness or anxiety after 2 weeks Goals to Promote Your Health * To prevent worsening of your condition and complications * To maintain your health at the optimal level Directions to Meet Your Goals Take your medications as prescribed Follow your dietary instruction Follow activity as directed Ensure plenty of rest for recovery Drink fluids for hydration Keep your appointments as scheduled Take your immunizations and boosters as scheduled If your symptoms worsen call your PCP, if no PCP go to Urgent Care Center or Emergency Room Smoking is Dangerous to Your Health. Avoid second hand smoke Call the 24-hour crisis hotline for domestic abuse at Robin Gtz MD May 08, 2017 09:12
--- NOTE | 2017-05-08 09:13 | HHI.DS ---
Admission Date May 07, 2017 at 17:35 Discharge Date: May 08, 2017 Admitting Diagnosis Diagnosis: (1) Excessive menses ICD Codes: N92.0 - Excessive and frequent menstruation with regular cycle Status: Chronic Brief History patient has heavy bleeding and she has tried both medical and ablation not worked for [facility] bilateral salpingectomy Hospital Course Patient came for [facility] and DC home next day in stable condition. Juan A did cholestectomy same day Pt Condition on Discharge: Good Discharge Disposition: Discharge Home Discharge Instructions Diet Instructions: As Tolerated, No Restrictions Activities You Can Perform: Pelvic Rest Activities to Avoid: Driving for 24 hrs Follow up Referrals: CORPORATE LAW ASSISTANT - 2 Weeks @ [facility] with Robin Gtz MD New Medications: Oxycodone-Acetaminophen (Oxycodone-Acetaminophen) 5-325 mg Tab 1 TAB PO Q4H PRN for PAIN SCALE 1 TO 5 for 14 Days, #30 TAB 0 Refills Continued Medications: Bupropion HCl ER 12 HR (Wellbutrin SR 12 HR) 200 Mg Tab 200 MG PO DAILY for Control Depression, TAB 0 Refills Cholecalciferol (Vitamin D3) 5,000 Unit Cap 5000 UNITS PO DAILY for Nutritional Supplement, #30 CAP 0 Refills Cyanocobalamin Inj (Cyanocobalamin Inj) 1,000 Mcg/Ml Inj 1000 MCG IM Q 7 DAYS, #1 VIAL 0 Refills Levothyroxine (Tirosint) 125 Mcg Cap 125 MCG PO DAILY for Thyroid, #30 CAP 0 Refills Ondansetron Odt (Zofran Odt) 4 Mg Tab 4 MG SL Q8HR PRN for Nausea/Vomiting, #20 TAB 0 Refills Robin Gtz MD May 08, 2017 09:13
[2017-05-08] MEDS: SODIUM CHLORIDE 0.9% FLUSH 10 ML FLUSH IV FLUSH SCH (10:56)
[2017-05-08 12:00] VITALS: BP 110/64; PULSE 88; RESP 16; TEMP 100; O2SAT 93
== END 2017-05-08 15:30 | disposition home or self-care (01) ==
LOC: HSDC 09:48 → HOCB 17:35
PROVIDERS: ADMIT Obstetrics & Gynecology; ATTEND Obstetrics & Gynecology
DX: D25.9 Leiomyoma of uterus, unspecified (principal); N80.0 Endometriosis of uterus; N92.0 Excessive and frequent menstruation with regular cycle; K80.10 Calculus of gallbladder with chronic cholecystitis without obstruction; I10 Essential (primary) hypertension; E03.9 Hypothyroidism, unspecified; F41.9 Anxiety disorder, unspecified
CPT/HCPCS: 00840; 47562; 58542; 84703; 85025; 86850; 86900; 86901; 88304; 88307; 96361; 96374; 96375; 96376; G0378; J0131; J0690; J1170; J1885; J2250; J2270; J2405; J2550; J2710; J3010; J3370; J7050; J7120

== ENCOUNTER → 2017-06-12 | Day surgery (SDC) | payer BC ==
[~2017-06-12] VITALS: Ht 170.2 cm; Wt 99.8 kg
[~2017-06-12] MED LIST changes: +*morphine SULFATE 8 MG/ML PERIprocedure ONLY ONE; +ACETAMINOPHEN 1000 MG/100 ML 100 ML IV ONE; +APREPITANT 40 MG CAP ONE; +BUPIVACAINE/EPINEPHRINE 0.25% 50 ML VIAL ONE; +BUPR100CR PO; +CHLORHEXIDINE GLUCONATE 2 % 1 PACK (2 CLOTHS) TOPICAL PRN; +DEXAMETHASONE SOD PHOS 4 MG/ML VIAL IV ONE; +DO NOT ADM ANY ANTICOAGULANT DRUGS PRN; +GLYCOPYRROLATE 1 MG/5 ML SYRINGE IV PUSH ONE; +INSULIN HUMAN REGULAR 1,000 UNITS/10 ML VIAL SQ PRN; +KETOROLAC TROMETHAMINE 30 MG/ML (IVP) VIAL IV PUSH ONE; +LACTATED RINGER'S 1000 ML INJ 1,000 ML IV ONE; +LACTATED RINGER'S 1000 ML IV PRN; +LIDOCAINE HCL 1% PF 5 ML AMPULE OTHER ONE; +METOPROLOL TARTRATE 25 MG TAB PO PRN; +MIDAZOLAM HCL 2 MG/2 ML VIAL IV ONE; +NEOSTIGMINE 3 MG/3 ML SYR IV ONE; +ONDANSETRON HCL 4 MG/2 ML VIAL IV PUSH ONE; +PERC5TAB12 PO; +PROMETHAZINE INJ 25 MG/ML VIAL ONE; +PROPOFOL 200 MG/20 ML AMP IV ONE; +ROCURONIUM INJ 50 MG/5 ML SYRINGE IV PUSH ONE; +SODIUM CHLORID 0.9% 500 ML IV PRN; +STERILE WATER FOR INJECTION 20 ML VIAL IV ONE; +ceFAZolin INJ 1,000 MG VIAL IV ONE
[2017-06-12] MEDS: POVIDONE IODINE 5% (ANTISEPSIS KIT) 4 APPLICATIONS EACH NARE PRN (06:30)
[2017-06-12 06:49] LABS: AUTOMATED NEUTROPHIL # 5.6 TH/MM3 (1.8-7.7); BASOPHIL % 0.3 % (0.0-2.0); EOSINOPHIL # 0.5 TH/MM3 (0-0.4); EOSINOPHIL % 5.3 % (0.0-4.0); HEMATOCRIT 39.2 % (35.0-46.0); HEMO FLAGS DIFF FINAL; LYMPH % 23.3 % (9.0-44.0); LYMPHOCYTE # 2.1 TH/MM3 (1.0-4.8); MEAN CELL VOLUME 91.1 FL (80.0-100.0); MEAN CORPUSCULAR HEMOGLOBIN 30.8 PG (27.0-34.0); MEAN CORPUSCULAR HGB CONC 33.8 % (32.0-36.0); MONO % 8.1 % (0.0-8.0); PLATELET COUNT 211 TH/MM3 (150-450); RED BLOOD COUNT 4.31 MIL/MM3 (4.00-5.30); RED CELL DISTRIBUTION WIDTH 14.4 % (11.6-17.2); WHITE BLOOD COUNT 8.9 TH/MM3 (4.0-11.0)
--- NOTE | 2017-06-12 09:37 | HHI.DCPOC ---
Discharge Care Plan Diagnosis: (1) Excessive menses Report Symptoms to Your Doctor -Temperature above 100.5 degrees -Redness, of incision or excessive or foul smelling drainage -Unusual pain or calf pain -Increased vaginal bleeding -Painful or difficulty urinating -Feelings of extreme sadness or anxiety after 2 weeks Goals to Promote Your Health * To prevent worsening of your condition and complications * To maintain your health at the optimal level Directions to Meet Your Goals Take your medications as prescribed Follow your dietary instruction Follow activity as directed Ensure plenty of rest for recovery Drink fluids for hydration Keep your appointments as scheduled Take your immunizations and boosters as scheduled If your symptoms worsen call your PCP, if no PCP go to Urgent Care Center or Emergency Room Smoking is Dangerous to Your Health. Avoid second hand smoke Call the 24-hour crisis hotline for domestic abuse at Robin Gtz MD Jun 12, 2017 09:37
--- NOTE | 2017-06-12 10:17 | MP ---
cc: THIEN GTZ M.D. DATE OF SURGERY 06/12/2017 PROCEDURE Operative laparoscopy with bilateral oophorectomy. PREOPERATIVE DIAGNOSIS The patient desires ovaries removed. POSTOPERATIVE DIAGNOSIS The patient desires ovaries removed. SURGEON Dr. Gtz ANESTHESIA General, Dr. Lindsey COMPLICATIONS None FINDINGS Normal female pelvic anatomy, slight adhesions from previous surgery one month ago. PROCEDURE IN DETAIL After informed consent, the patient taken to the operating room where she was placed under general anesthesia, placed in the supine position. Her bladder had been drained with a red Pitts catheter. The patient was in the supine position and prepped and draped. A time-out was taken for the patient to have both of her ovaries removed. Everyone was in agreement. At the end of the procedure, we confirmed that both ovaries were removed and will be sent to pathology for permanent section in the same collection. A 5 mm infraumbilical incision was made after injection with quarter percent Marcaine with epinephrine. We traveled with the optical trocar through the subcutaneous tissue, but could not readily enter the peritoneum. With the previous surgery one month before, we were concerned of any adhesions that were at the umbilicus. Bowel perineum seemed pink and was concerning for possible adhesions, so after two attempts, we decided to proceed differently. We attempted a Veress needle and once again I felt the peritoneum was being pushed out of the way and the Veress needle did not easily entered the abdomen midway between the umbilicus and the suprapubic region. At this point, a decision was made that we make an incision in the suprapubic area. We made the incision initially 20 mm, dissected down to the fascia, the fascia was thickened, scar tissue was encountered from her previous surgeries which were three different surgeries including the one, one month ago. Once we reached the peritoneum, the peritoneum was very thickened. At this point since we were suprapubic and this had taken approximately 25 minutes, we felt that we would place a Bustos to make sure the bladder was drained and out of our way. So at this point, the nurse placed a Bustos using sterile technique intraoperatively underneath the drapes. The Bustos was placed and good yellow urine was noted. We continued to dissect through the peritoneum until we found a thin area and it was entered sharply with Metzenbaum scissors and we entered the peritoneum. At this point, a 10 mm trocar was placed in and we insufflated the abdomen. We visualized the umbilicus under direct visualization and placed a trocar with no injury to bowel or blood vessels. Once we were at the umbilicus, we placed a camera there, left and right lower quadrant 5 mm trocars were placed and the suprapubic incision was closed with a suture temporarily because of leakage of CO2. Once the abdomen was fully insufflated, the upper abdomen was normal. The lower abdomen was normal. Both ovaries were against the pelvic sidewall, but not densely adherent. Using a Harmonic scalpel, we came just across the infundibulopelvic ligament and removed both ovaries from the blood supply and then dissecting them off the peritoneum. There were some slight adhesions of the omentum which was taken down just bluntly with a probe without difficulty. At this point, both areas where ovaries had been removed were completely hemostatic. There was no bleeding. This was visualized at the end of the case right before we were finished. We opened the suprapubic incision slightly which at the fascia was approximately 20 mm, the skin was 40 or 50 mm and we brought the ovaries up through that incision without difficulty removing both ovaries intact. At this point the abdomen, the abdomen was reinsufflated and noted that there was no active bleeding. The pelvis was free and so we took all CO2 out of the abdomen, removed all trocars and placed 0 Vicryl to close the fascia at the suprapubic region. We then closed the subcutaneous tissue and the skin with a subcuticular stitch of 4-0 Vicryl. The three 5 mm trocar sites were also closed with 4-0 Vicryl without difficulty and good hemostasis was achieved at all areas. Before the patient left the operating room and the wounds were clean, we placed Dermabond over those incisions. The patient tolerated the procedure well. She was taken to the recovery room in stable condition. Lap and instrument counts were reported as correct. The patient will be sent home today. MD VLADIMIR Grayson/KIAN /9:46 AM /10:02 AM
--- NOTE | 2017-06-12 10:29 | PD.OP ---
Operative Report Date of Surgery: Jun 12, 2017 Preoperative Diagnosis: (1) Excessive menses Postoperative Diagnosis: (1) Excessive menses Procedure: bilateral oophorectomy laparoscopic Anesthesia: general Surgeon: Robin Gtz Banquet Director(s): Robin Bejarano MD Jun 12, 2017 10:29
[2017-06-12 11:30] VITALS: BP 147/86; PULSE 87; RESP 16; TEMP 99.6; O2SAT 95
== END | disposition home or self-care (01) ==
LOC: HSDC 05:37
PROVIDERS: ATTEND Obstetrics & Gynecology
DX: N92.0 Excessive and frequent menstruation with regular cycle (principal); N83.12 Corpus luteum cyst of left ovary; N83.11 Corpus luteum cyst of right ovary; D64.9 Anemia, unspecified; Z01.818 Encounter for other preprocedural examination
CPT/HCPCS: 00840; 58661; 85025; 88305; J0131; J0690; J1100; J1885; J2250; J2270; J2405; J2550; J2710; J3010; J7120; J8501

== ENCOUNTER 2017-06-22 10:00 | Emergency (ER) | payer BC ==
[~2017-06-22] VITALS: Ht 170.2 cm; Wt 99.8 kg
[~2017-06-22 10:00] MED LIST changes: -*morphine SULFATE 8 MG/ML PERIprocedure ONLY ONE; -ACETAMINOPHEN 1000 MG/100 ML 100 ML IV ONE; -APREPITANT 40 MG CAP ONE; -BUPIVACAINE/EPINEPHRINE 0.25% 50 ML VIAL ONE; -BUPR100CR PO; -CHLORHEXIDINE GLUCONATE 2 % 1 PACK (2 CLOTHS) TOPICAL PRN; -DEXAMETHASONE SOD PHOS 4 MG/ML VIAL IV ONE; -DO NOT ADM ANY ANTICOAGULANT DRUGS PRN; -GLYCOPYRROLATE 1 MG/5 ML SYRINGE IV PUSH ONE; -INSULIN HUMAN REGULAR 1,000 UNITS/10 ML VIAL SQ PRN; -KETOROLAC TROMETHAMINE 30 MG/ML (IVP) VIAL IV PUSH ONE; -LACTATED RINGER'S 1000 ML INJ 1,000 ML IV ONE; -LACTATED RINGER'S 1000 ML IV PRN; -LIDOCAINE HCL 1% PF 5 ML AMPULE OTHER ONE; -METOPROLOL TARTRATE 25 MG TAB PO PRN; -MIDAZOLAM HCL 2 MG/2 ML VIAL IV ONE; -NEOSTIGMINE 3 MG/3 ML SYR IV ONE; -ONDANSETRON HCL 4 MG/2 ML VIAL IV PUSH ONE; -PROMETHAZINE INJ 25 MG/ML VIAL ONE; -PROPOFOL 200 MG/20 ML AMP IV ONE; -ROCURONIUM INJ 50 MG/5 ML SYRINGE IV PUSH ONE; -SODIUM CHLORID 0.9% 500 ML IV PRN; -STERILE WATER FOR INJECTION 20 ML VIAL IV ONE; -ceFAZolin INJ 1,000 MG VIAL IV ONE
[2017-06-22 10:06] VITALS: BP 171/80; PULSE 77; RESP 16; TEMP 98; O2SAT 98
[2017-06-22] MEDS ORDERED: BUPR100CR PO (10:34)
[2017-06-22] MEDS ORDERED: SODIUM CHLOR 0.9% 1000 ML INJ 1,000 ML IV SCH (10:53)
[2017-06-22 10:59] LABS: BLOOD, URINE NEG (NEG); GLUCOSE,URINE NEG (NEG); KETONE, URINE NEG (NEG); NITRITE,URINE NEG (NEG); PH, URINE 5.5 (5.0-8.5)
[2017-06-22] MEDS ORDERED: SODIUM CHLORIDE 0.9% FLUSH 10 ML FLUSH IV FLUSH PRN (11:00)
--- NOTE | 2017-06-22 11:01 | PD ---
HPI Chief Complaint: Abdominal Pain Time Seen by Provider: 10:43 Travel History International Travel<30 days: No Contact w/Intl Traveler<30days: No Traveled to known affect area: No History of Present Illness HPI 46-year-old female 10 days status post abdominal surgery for total hysterectomy, gallbladder removal, with open lower abdominal incision site. Patient is noted a tender firm area to the left lower abdomen above the incision site over the past couple of days. She states she is moving her bowels regularly through the day. She has not done anything strenuous to cause rupture but is concerned as it is uncomfortable and is concerned about possible hernia versus other issue. Patient states she is urinating normally without burning. She denies vaginal discharge or bleeding. She denies fever chills or other constitutional symptoms. Pain is currently about a 6 out of 10, and worse with palpation or movement. She has not been taking any pain medications in the last week. Dr. Bo was her INFORMATION SERVICES CONSULTANT. She is allergic to penicillin. PFSH Past Medical History Cancer: No Cardiovascular Problems: No Diabetes: No Diminished Hearing: No Endocrine: Yes Gastrointestinal Disorders: Yes ( GALLSTONES, HX DIVERTICULITIS) Genitourinary: No Hepatitis: No Hiatal Hernia: No Hypertension: Yes (NO MEDS) Immune Disorder: No Musculoskeletal: No Neurologic: No Psychiatric: Yes (ANXIETY, DEPRESSION) Reproductive: Yes (ENDOMETRIOSIS, HEAVY MENSES) Respiratory: No Thyroid Disease: Yes (HYPO, JASPAL'S ) Tetanus Vaccination: Unknown ?: Not Past Surgical History Abdominal Surgery: Yes (chol) AICD: No Body Medical Devices: NONE Cardiac Surgery: No Ear Surgery: No Endocrine Surgery: No Eye Surgery: No Genitourinary Surgery: No Gynecologic Surgery: Yes ( 2, OVARIAN CAUTERIZATION, UTERINE ABLATION , hysterectomy) Hysterectomy: Yes Joint Replacement: No Neurologic Surgery: No Oral Surgery: No Pacemaker: No Thoracic Surgery: No Other Surgery: Yes (UTERINE OBLATION) Social History Alcohol Use: No Tobacco Use: No Substance Use: No Allergies-Medications (Allergen,Severity, Reaction): Coded Allergies: Penicillins (Verified Allergy, Unknown, u, 06/22/17) Reported Meds & Prescriptions Reported Meds & Active Scripts Active Reported Wellbutrin SR 12 HR (Bupropion HCl) 100 Mg Tab 100 Mg PO Q12HR Cyanocobalamin Inj (Cyanocobalamin) 1,000 Mcg/Ml Inj 1,000 Mcg IM Q 7 DAYS Vitamin D3 (Cholecalciferol) 5,000 Unit Cap 5,000 Units PO DAILY Tirosint (Levothyroxine Sodium) 125 Mcg Cap 125 Mcg PO DAILY Review of Systems Except as stated in HPI: all other systems reviewed are Neg General / Constitutional: No: Fever, Chills Eyes: No: Visual changes HENT: No: Headaches Cardiovascular: No: Chest Pain or Discomfort Respiratory: No: Shortness of Breath Gastrointestinal: Positive: Abdominal Pain, Other (see history present illness) , No: Nausea, Vomiting, Diarrhea, Constipation, Changes in Bowel Habits, Loss of Appetite Genitourinary: No: Urgency, Frequency, Dysuria, Pelvic Pain, Discharge, Vaginal Bleeding Musculoskeletal: No: Pain Skin: No Rash Neurologic: No: Weakness Psychiatric: No: Depression Endocrine: No: Polydipsia Hematologic/Lymphatic: No: Easy Bruising Physical Exam Narrative GENERAL: Patient appears in no obvious distress. SKIN: Warm and dry. Normal color. Normal turgor. Abdominal incision sites all appear to be well-healed without signs of cellulitis or wound dehiscence. No drainage is noted. HEAD: Atraumatic. Normocephalic. EYES: Pupils equal and round. No scleral icterus. No injection or drainage. ENT: No nasal bleeding or discharge. Mucous membranes pink and moist. Pharynx is clear. Airway is patent. NECK: Trachea midline. Neck is supple and nontender.. CARDIOVASCULAR: Regular rate and rhythm. RESPIRATORY: No accessory muscle use. Clear to auscultation. Breath sounds equal bilaterally. GASTROINTESTINAL: Abdomen soft, non-tender, nondistended. Hepatic and splenic margins not palpable. Patient has firm tender area over the left aspect of the lower abdominal incision site consistent with possible hernia versus localized induration or blood collection. No signs of abscess appreciated. This is moderately tender with palpation. It is not reducible per se. MUSCULOSKELETAL: Extremities without clubbing, cyanosis, or edema. No obvious deformities. NEUROLOGICAL: Awake and alert. No obvious cranial nerve deficits. Motor grossly within normal limits. Five out of 5 muscle strength in the arms and legs. Normal speech. PSYCHIATRIC: Appropriate mood and affect; insight and judgment normal. Data Data Last Documented VS Vital Signs Date Time Temp Pulse Resp B/P (MAP) Pulse Ox O2 Delivery O2 Flow Rate FiO2 06/22/17 13:10 82 16 156/97 (116) 98 Room Air 06/22/17 10:06 98.0 Orders Orders Ua Includes Microscopic (06/22/17 10:08) Ed Urine Pregnancytest Poc (06/22/17 10:08) Complete Blood Count With Diff (06/22/17 10:53) Comprehensive Metabolic Panel (06/22/17 10:53) Lipase (06/22/17 10:53) Prothrombin Time / Inr (Pt) (06/22/17 10:53) Act Partial Throm Time (Ptt) (06/22/17 10:53) Ct Abd/Pel W Iv Contrast(Rout) (06/22/17 10:53) Iv Access Insert/Monitor (06/22/17 10:53) Ecg Monitoring (06/22/17 10:53) Oximetry (06/22/17 10:53) NPO (06/22/17 10:53) Sodium Chlor 0.9% 1000 Ml Inj (Ns 1000 M (06/22/17 10:53) Sodium Chloride 0.9% Flush (Ns Flush) (06/22/17 11:00) Oral Contrast - Adult (06/22/17 10:57) Diatrizoate Liq ( Gastroview Liq) (06/22/17 11:04) Iohexol 350 Inj (Omnipaque 350 Inj) (06/22/17 12:15) Labs Laboratory Tests Test 06/22/17 10:35 06/22/17 11:00 Urine Collection Type CLEAN CATCH Urine Color YELLOW Urine Turbidity CLEAR Urine pH 5.5 Urine Specific [place] 1.008 Urine Protein NEG mg/dL Urine Glucose (UA) NEG mg/dL Urine Ketones NEG mg/dL Urine Occult Blood NEG Urine Nitrite NEG Urine Bilirubin NEG Urine Leukocyte Esterase NEG Urine WBC 0-2 /hpf Urine Squamous Epithelial Cells 0-5 /hpf Urine Collection Time 10:35 White Blood Count 8.7 TH/MM3 Red Blood Count 4.76 MIL/MM3 Hemoglobin 14.4 GM/DL Hematocrit 42.7 % Mean Corpuscular Volume 89.7 FL Mean Corpuscular Hemoglobin 30.2 PG Mean Corpuscular Hemoglobin Concent 33.7 % Red Cell Distribution Width 13.4 % Platelet Count 291 TH/MM3 Mean Platelet Volume 7.9 FL Neutrophils (%) (Auto) 73.1 % Lymphocytes (%) (Auto) 19.2 % Monocytes (%) (Auto) 4.9 % Eosinophils (%) (Auto) 2.4 % Basophils (%) (Auto) 0.4 % Neutrophils # (Auto) 6.4 TH/MM3 Lymphocytes # (Auto) 1.7 TH/MM3 Monocytes # (Auto) 0.4 TH/MM3 Eosinophils # (Auto) 0.2 TH/MM3 Basophils # (Auto) 0.0 TH/MM3 CBC Comment DIFF FINAL Differential Comment Prothrombin Time 10.7 SEC Prothromb Time International Ratio 1.0 RATIO Activated Partial Thromboplast Time 26.5 SEC Blood Urea Nitrogen 8 MG/DL Creatinine 0.69 MG/DL Random Glucose 121 MG/DL Total Protein 7.9 GM/DL Albumin 3.8 GM/DL Calcium Level 9.0 MG/DL Alkaline Phosphatase 69 U/L Aspartate Amino Transf (AST/SGOT) 15 U/L Alanine Aminotransferase (ALT/SGPT) 24 U/L Total Bilirubin 0.4 MG/DL Sodium Level 135 MEQ/L Potassium Level 4.2 MEQ/L Chloride Level 99 MEQ/L Carbon Dioxide Level 27.6 MEQ/L Anion Gap 8 MEQ/L Estimat Glomerular Filtration Rate 91 ML/MIN Lipase 103 U/L [facility] Medical Decision Making Medical Screen Exam Complete: Yes Emergency Medical Condition: Yes Medical Record Reviewed: Yes Differential Diagnosis Incisional hernia. Hematoma. Abscess. 10 days postop abdominal surgery. Narrative Course Patient is medically stable at time of exam. Basic labs ordered including CBC, CMP, PT PTT and INR, and urinalysis. IV access is obtained patient is given thousand and a normal saline bolus. Abdominal CT scan with both IV and oral contrast is ordered. Labs are all within normal limits. CT scan shows possible seroma versus hematoma in the left lower abdominal wall cyst in the patient's history. Call was placed to Dr. Gómez who is on-call for Dr. Bo the SUPERVISOR AGRICULTURAL EDUCATION physician who performed the surgeon, and the patient was discussed. Based on the patient's findings and labs I do not suspect abscess or hernia. Dr. Gómez recommended rest, and follow-up with Dr. Bo next week. Patient can return the emergency department as needed. Diagnosis Primary Impression: Abdominal pain Qualified Codes: R10.32 - Left lower quadrant pain Additional Impression: Hematoma Referrals: Robin Gtz MD Patient Instructions: General Instructions Additional Instructions: Labs are all within normal limits. CT scan shows possible seroma versus hematoma in the left lower abdominal wall cyst in the patient's history. Call was placed to Dr. Gómez who is on-call for Dr. Bo the SUPERVISOR [employer]UC[employer] physician who performed the surgeon, and the patient was discussed. Based on the patient's findings and labs I do not suspect abscess or hernia. Dr. Gómez recommended rest, and follow-up with Dr. Bo next week. Patient can return the emergency department as needed. Med/Other Pt SpecificInfo: No Meds Exist/No RX given Disposition: 01 DISCHARGE HOME Condition: Stable Kiel Cruz Jun 22, 2017 11:01
[2017-06-22] MEDS ORDERED: DIATRIZOATE MEGLUM/DIATRIZOATE SOD 9 ML CUP ONE (11:04)
[2017-06-22 11:08] LABS: METHOD OF COLLECTION CLEAN CATCH; URINE COLOR YELLOW (YELLW/STRAW)
[2017-06-22 11:09] LABS: SQUAMOUS EPITHELIAL CELL URINE 0-5 /hpf (0-5); WBC, URINE 0-2 /hpf (0-5)
[2017-06-22 11:12] VITALS: RESP 16; O2SAT 98
[2017-06-22 11:13] LABS: AUTOMATED NEUTROPHIL # 6.4 TH/MM3 (1.8-7.7); BASOPHIL % 0.4 % (0.0-2.0); CHLORIDE 99 MEQ/L (98-107); EOSINOPHIL # 0.2 TH/MM3 (0-0.4); EOSINOPHIL % 2.4 % (0.0-4.0); HEMATOCRIT 42.7 % (35.0-46.0); HEMO FLAGS DIFF FINAL; LYMPH % 19.2 % (9.0-44.0); LYMPHOCYTE # 1.7 TH/MM3 (1.0-4.8); MEAN CELL VOLUME 89.7 FL (80.0-100.0); MEAN CORPUSCULAR HEMOGLOBIN 30.2 PG (27.0-34.0); MEAN CORPUSCULAR HGB CONC 33.7 % (32.0-36.0); MONO % 4.9 % (0.0-8.0); NEUT % 73.1 % (16.0-70.0); PLATELET COUNT 291 TH/MM3 (150-450); POTASSIUM 4.2 MEQ/L (3.5-5.1); RED BLOOD COUNT 4.76 MIL/MM3 (4.00-5.30); RED CELL DISTRIBUTION WIDTH 13.4 % (11.6-17.2); SODIUM (NA) 135 MEQ/L (136-145); WHITE BLOOD COUNT 8.7 TH/MM3 (4.0-11.0)
[2017-06-22 11:17] LABS: ANION GAP 8 MEQ/L (5-15); BICARBONATE 27.6 MEQ/L (21.0-32.0)
[2017-06-22 11:18] LABS: BLOOD UREA NITROGEN 8 MG/DL (7-18)
[2017-06-22 11:20] LABS: ALT (GPT) 24 U/L (10-53); AST (GOT) 15 U/L (15-37); GLOMERULAR FILTRATION RATE 91 ML/MIN (>89)
[2017-06-22 11:22] LABS: TOTAL BILIRUBIN ADULT 0.4 MG/DL (0.2-1.0)
[2017-06-22 11:23] LABS: ALKALINE PHOSPHATASE 69 U/L (45-117)
[2017-06-22 11:31] LABS: APTT (PATIENT) 26.5 SEC (24.3-30.1); PROTHROMBIN TIME - PATIENT 10.7 SEC (9.8-11.6)
[2017-06-22] MEDS ORDERED: IOHEXOL 350 MG/ML 10 ML VIAL (for RAD DIAG) IVCONTRAST ONE (12:15)
--- NOTE | 2017-06-22 12:54 | RADRPT ---
EXAM DATE/TIME: 06/22/2017 12:20 [place] COMPARISON: No previous studies available for comparison. INDICATIONS : Abdominal pain. IV CONTRAST: 96 cc Omnipaque 350 (iohexol) IV ORAL CONTRAST: Prescribed oral contrast ingested. RADIATION DOSE: 21.12 CTDIvol (mGy) MEDICAL HISTORY : Hypothyroidism. Hypertension. Diverticulitis.Gallstones. SURGICAL HISTORY : Hysterectomy. Uterine ablation ENCOUNTER: Initial ACUITY: 1 day PAIN SCALE: 6/10 LOCATION: Left lower abdomen. TECHNIQUE: Volumetric scanning of the abdomen and pelvis was performed. Using automated exposure control and ad justment of the mA and/or kV according to patient size, radiation dose was kept as low as reasonably achievable to obtain optimal diagnostic quality images. DICOM format image data is available electro nically for review and comparison. FINDINGS: LOWER LUNGS: The visualized lower lungs are clear. LIVER: Homogeneous, but decreased density there is focal hypodensity in the region of the gallbladder bed ma y represent a decompressed intraparenchymal gallbladder as the patient does not report a history of c holecystectomy. SPLEEN: Normal size without lesion. PANCREAS: Within normal limits. KIDNEYS: Normal in size and shape. There is no mass, stone or hydronephrosis. ADRENAL GLANDS: Within normal limits. VASCULAR: There is no aortic aneurysm. BOWEL/MESENTERY: The stomach, small bowel, and colon demonstrate no acute abnormality. There is no free intraperitone al air or fluid. Diverticular disease of the descending and sigmoid colon without diverticulitis. ABDOMINAL WALL: Air within the subcutaneous tissues just to the left anteroinferior to the umbilicus may represent aguirre bcutaneous injection. Foci of air is identified just subjacent to the left rectus abdominis muscle wi th an additional dot of air is seen adjacent to the right side of urinary bladder which may be indica tive of intraperitoneal injection. There is a complex, 4.7 x 2.4 cm low density area in the region of the lower left rectus abdominis muscle with induration of the adjacent fat and thickening of the mus joce belly itself. RETROPERITONEUM: There is no lymphadenopathy. BLADDER: No wall thickening or mass. REPRODUCTIVE: Patient is status post hysterectomy. INGUINAL: There is no lymphadenopathy or hernia. MUSCULOSKELETAL: Partial sacralization of the left side of L5. Otherwise intact. CONCLUSION: 1. Moderate, diffuse hepatic fatty infiltration. 2. Small, 4.7 x 2.4 cm lobulated low density area in the lower left abdominal wall which appears to b e associated with the inferior aspect of the left rectus abdominis muscle. There is thickening of the muscle and stranding in the adjacent fatty tissues. Diagnostic considerations include abscess or hem atoma. Is there a recent history of intervention? 3. In addition, there is subcutaneous air in the anterior abdominal wall just left lateral and inferi or to the umbilicus. Small dot of air is seen subjacent to the upper rectus abdominis muscle and pratik cent to the urinary bladder. Findings may represent subcutaneous injections with possible partial inj ection into the peritoneal cavity itself. 4. Diverticular disease of the descending and sigmoid colon without diverticulitis. Iron Childers MD on June 22, 2017 at 12:43 Board Certified Radiologist. This report was verified electronically.
[2017-06-22 13:10] VITALS: BP 156/97; PULSE 82; RESP 16; O2SAT 98
== END 2017-06-22 14:02 | disposition home or self-care (01) ==
LOC: PHED 10:00
DX: R10.32 Left lower quadrant pain (principal); L76.32 Postprocedural hematoma of skin and subcutaneous tissue following other procedure; I10 Essential (primary) hypertension; E07.9 Disorder of thyroid, unspecified; Z98.890 Other specified postprocedural states; Z87.19 Personal history of other diseases of the digestive system; Z86.59 Personal history of other mental and behavioral disorders; Z87.42 Personal history of other diseases of the female genital tract
CPT/HCPCS: 74177; 80053; 81001; 83690; 85025; 85610; 85730; 96360; 99285; J7030; Q9963; Q9967